=== PATIENT | male | born 1945 | race Caucasian/White ===

== ENCOUNTER → 2017-12-17 | Outpatient (CLI) | payer OTHER, BC | LOC: FIMAGING 10:05 | PROVIDERS: ATTEND Surgery | DX: E21.0 Primary hyperparathyroidism (principal) | CPT/HCPCS: 78070; A9500 ==

== ENCOUNTER 2018-04-02 07:49 | Observation (INO) | payer OTHER, BC ==
[~2018-04-02 07:49] MED LIST: BUPIVACAINE 0.5% 30 ML SDV ONE; EPINEPHrine 1 MG/ML INJ ONE; THROMBIN (BOVINE) 5,000 UNIT VIAL TP ONE; ceFAZolin 2 GM/SWFI 2 GM/20 ML SYR IVP ONE
[2018-04-02] MEDS ORDERED: LR 1,000 ML IV ONE (08:30)
--- NOTE | 2018-04-02 08:34 | PDANEPAE ---
ANE Past Medical History - Cardiovascular History Hx Hypertension: Yes Hx Arrhythmias: No Hx Chest Pain: No Hx Coronary Artery / Peripheral Vascular Disease: Yes Hx CHF / Valvular Disease: No Hx Palpitations: No Cardiovascular History Comment: [facility] 2006 - Pulmonary History Hx COPD: No Hx Asthma/Reactive Airway Disease: No Hx Recent Upper Respiratory Infection: No Hx Oxygen in Use at Home: No Hx Sleep Apnea: No Sleep Apnea Screening Result - Last Documented: Positive - Neurologic History Hx Cerebrovascular Accident: No Hx Seizures: No Hx Dementia: No - Endocrine History Hx Diabetes: No Hypothyroid: No Hyperthyroid: No Obesity: no - Renal History Hx Renal Disorders: Yes Renal History Comment: STAGE 3 KIDNEY DISEASE - Liver History Hx Hepatic Disorders: No - Neurological & Psychiatric Hx Hx Neurological and Psychiatric Disorders: No - Cancer History Hx Cancer: Yes 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 ablation 2017 ANE Review of Systems Review of Systems: - Exercise capacity METS (RN): 4 METS ANE Patient History - Allergies Allergies/Adverse Reactions: No Known Allergies Allergy (Unverified 03/26/18 11:42) - Home Medications Home Medications: Apixaban [Eliquis] 5 mg PO BID 03/26/18 [Last Taken 03/28/18] Cyanocobalamin [Vitamin B12 (*)] 1,000 mcg PO DAILY 03/26/18 [Last Taken ] Ezetimibe/Simvastatin [Vytorin 10-20 mg Tablet] 1 each PO DAILY 03/26/18 [Last Taken 03/28/18] FENOFIBRATE 160 mg PO DAILY 03/26/18 [Last Taken Unknown] Ferrous Sulfate [Ferrous Sulf 325 MG (*)] 2 tab PO DAILY 03/26/18 [Last Taken ] Herbals/Supplements -Info Only 1 ea PO DAILY 03/26/18 [Last Taken 03/28/18] Metoprolol Tartrate [Lopressor 25 mg (*)] 12.5 mg PO DAILY 03/26/18 [Last Taken 03/28/18] Omeprazole 40 mg PO DAILY 03/26/18 [Last Taken 03/28/18] amLODIPine BES/OLMESARTAN MED [Bisi 5-20 mg Tablet] 1 each PO DAILY 03/26/18 [ Last Taken 03/28/18] - Anes Hx Anes Hx: no prior problems - Smoking Hx Smoking Status: Never smoked - Family Anes Hx Family Hx Anesthesia Complications: none ANE Labs/Vital Signs - Labs Result Diagrams: 04/02/18 09:00 - Vital Signs Height: 170.18 cm Weight: 72.575 kg ANE Physical Exam - Airway Neck exam: FROM Mallampati Score: Class 2 Mouth exam: normal dental/mouth exam - Pulmonary Pulmonary: no respiratory distress, no rales or rhonchi, clear to auscultation - Cardiovascular Cardiovascular: systolic murmur, other (irreg rhythym, reg rate) - ASA Status ASA Status: III ANE Anesthesia Plan Anesthesia Plan: general endotracheal anesthesia Total IV Anesthesia: No
--- NOTE | 2018-04-02 09:09 | PDHPUP ---
History & Physical Update H&P update statement: This history and physical update is based on an assessment of the patient which was completed after admission or registration (within 24 hours), but prior to the surgery/procedure. H&P update: H&P reviewed & patient examined, no change in patient's condition since H&P completed
[2018-04-02] MEDS ORDERED: fentaNYL 100 MCG/2 ML INJ ONE ×3 (09:42→12:03)
[2018-04-02] MEDS ORDERED: PROPOFOL 200 MG/20 ML VIAL ONE (09:42)
[2018-04-02] MEDS ORDERED: ONDANSETRON 4 MG/2 ML VIAL ONE (09:43)
[2018-04-02] MEDS ORDERED: RANITIDINE 50 MG/2 ML VIAL ONE (09:43)
[2018-04-02] MEDS ORDERED: ROCURONIUM 50 MG/5 ML VIAL ONE (09:43)
[2018-04-02] MEDS ORDERED: DEXAMETHASONE 4 MG/ML VIAL ONE (09:43)
[2018-04-02] MEDS ORDERED: LIDOCAINE 2% 5 ML SDV ONE (09:45)
[2018-04-02] MEDS: BACITRACIN ZINC 14.2 GM OINTTUBE TP ONE ×2 (10:12→11:27)
[2018-04-02] MEDS ORDERED: fentaNYL 100 MCG/2 ML INJ IVP PRN (10:16)
[2018-04-02] MEDS ORDERED: ONDANSETRON 4 MG/2 ML VIAL IVP PRN (10:16)
[2018-04-02] MEDS ORDERED: LR 500 ML IV PRN (10:16)
[2018-04-02] MEDS ORDERED: ACETAMINOPHEN 500 MG TAB PO PRN (10:16)
[2018-04-02] MEDS ORDERED: HYDROCODONE/APAP 5/325 TAB PO PRN (10:16)
[2018-04-02] MEDS ORDERED: epHEDrine SULFATE 10 MG/ML SYR IVP PRN (10:16)
[2018-04-02] MEDS ORDERED: oxyCODONE IR 5 MG TAB PO PRN (10:16)
[2018-04-02] MEDS ORDERED: NALOXONE HCL 0.4 MG/ML INJ IVP PRN (10:16)
[2018-04-02] MEDS ORDERED: PHENYLEPHRINE HCL 100 MCG/ML SYR IVP PRN (10:16)
[2018-04-02] MEDS ORDERED: PROMETHAZINE HCL 25 MG/ML INJ IVP PRN (10:16)
[2018-04-02] MEDS ORDERED: hydrALAZINE 20 MG/ML VIAL ONE (10:33)
[2018-04-02] MEDS ORDERED: GLYCOPYRROLATE 0.2 MG/1 ML VIAL ONE (11:26)
[2018-04-02] MEDS ORDERED: NEOSTIGMINE METHYLSULFATE 3 MG/3 ML SYR ONE (11:27)
--- NOTE | 2018-04-02 11:41 | POSTOPPROG ---
Post Op Note Date of Operation: 04/02/18 Surgeon: Anand Rausch Wig Maker: Nataly Anesthesiologist: Carlton Anesthesia: GET(General Endotracheal) Pre-op Diagnosis: Hypercalcemia Post-op Diagnosis: Same Indication: Same Procedure: R upper and lower pole parathroidectomies, L upper and lower parathyroid bx Findings: Difficult to find parathyroids, no obvious adenoma Inf/Abcess present in the surg proc area at time of surgery?: No Depth: Deep Incisional (Fascial) EBL: Minimal Specimen(s): Right upper pole thyroid bx Right upper pole parathyroid Right lower pole parathyroid Left upper pole parathyroid bx Left lower pole parathyroid bx (All for frozen)
--- NOTE | 2018-04-02 12:03 | POSTANESTH ---
Post Anesthetic Evaluation Cardiovascular Status: Normal, Stable Respiratory Status: Normal, Stable Level of Consciousness/Mental Status: Can Participate in Eval Pain Control: Adequate, Prn Tx Ordered Nausea/Vomiting Control: Adequate, Prn Tx Ordered Complications Possibly Related to Anesthesia: None Noted
[2018-04-02] MEDS ORDERED: ACETAMINOPHEN 325 MG TAB PO PRN (13:00)
[2018-04-02] MEDS ORDERED: HYDROmorphONE/DILAUDID 1 MG/ML INJ IVP PRN (13:00)
[2018-04-02] MEDS ORDERED: NS 1,000 ML IV SCH (13:15)
[2018-04-02] MEDS ORDERED: NON-FORMULARY NEW DRUG (Ezetimibe/Simvastatin [Vytorin 10-20 Mg Tablet] 1 EACH) PO SCH (13:30)
[2018-04-02] MEDS ORDERED: NON-FORMULARY NEW DRUG (Omeprazole [Omeprazole] 40 MG) PO SCH (13:30)
[2018-04-02] MEDS ORDERED: OLMESARTAN MED PO SCH (13:30)
[2018-04-02] MEDS ORDERED: AMLODIPINE BES PO SCH (13:30)
[2018-04-02] MEDS ORDERED: NON-FORMULARY NEW DRUG (Fenofibrate [Fenofibrate] 160 MG) PO SCH (13:30)
[2018-04-02] MEDS ORDERED: ceFAZolin 2 GM/SWFI 2 GM/20 ML SYR IVP ONE (14:45)
[2018-04-02] MEDS: OLMESARTAN MEDOXOMIL 20 MG TAB PO SCH (15:56)
[2018-04-02] MEDS: amLODIPine BESYLATE 5 MG TAB PO SCH (15:56)
[2018-04-02] MEDS: PANTOPRAZOLE SODIUM 40 MG TAB PO SCH (15:56)
[2018-04-02] MEDS: CALCIUM CARBONATE 500 MG CHEWABLE TAB PO SCH ×2 (15:56→22:34)
[2018-04-02] MEDS: METOPROLOL TARTRATE 25 MG TAB PO SCH (15:57)
[2018-04-02] MEDS: FERROUS SULFATE 325 MG TAB PO SCH (15:58)
--- NOTE | 2018-04-02 18:38 | SOAPPROG ---
SOAP Progress Note Assessment/Plan: Assessment: Postop doing well/swallowing well/voice okay/ chovsteks negative Wound okay/calcium pending Plan: Home in the a.m. 04/02/18 18:36 Objective: Vital Signs Temp Pulse Resp BP Pulse Ox 36.6 C 75 18 137/72 H 94 04/02/18 16:24 04/02/18 16:24 04/02/18 16:24 04/02/18 16:24 04/02/18 16:24 Laboratory Results 04/02/18 15:30 04/01/18 04/02/18 04/03/18 05:59 05:59 05:59 Intake Total 1549 Output Total 750 Balance 799 ICD10 Worksheet Patient Problems: Problems Problem Status Onset Hypercalcemia Acute Hypercalcemia Acute - ICD10 Problem Qualifiers (1) Hypercalcemia
[2018-04-02] MEDS: OXYCODONE/APAP 5/325 TAB PO PRN (23:02)
[2018-04-03] MEDS: FERROUS SULFATE 325 MG TAB PO SCH (08:18)
[2018-04-03] MEDS: OLMESARTAN MEDOXOMIL 20 MG TAB PO SCH (08:21)
[2018-04-03] MEDS: amLODIPine BESYLATE 5 MG TAB PO SCH (08:22)
[2018-04-03] MEDS: METOPROLOL TARTRATE 25 MG TAB PO SCH (08:22)
[2018-04-03] MEDS: PANTOPRAZOLE SODIUM 40 MG TAB PO SCH (08:23)
[2018-04-03] MEDS: CALCIUM CARBONATE 500 MG CHEWABLE TAB PO SCH (08:24)
[2018-04-03] MEDS: OXYCODONE/APAP 5/325 TAB PO PRN (08:29)
[2018-04-03] MEDS ORDERED: ENOXAPARIN 40 MG/0.4 ML SYR SC SCH (09:00)
[2018-04-03] MEDS ORDERED: SIMVASTATIN PO SCH (09:00)
[2018-04-03] MEDS ORDERED: EZETIMIBE PO SCH (09:00)
[2018-04-03] MEDS ORDERED: Fenofibrate [Fenofibrate] 160 MG PO SCH (09:00)
--- NOTE | 2018-04-03 09:18 | SOAPPROG ---
ANI Progress Note Assessment/Plan: Assessment: 72 y/o M s/p partial parathyroidectomy for hypercalcemia S: Doing well overall. C/o some pain in left side of neck. Controlled with Percocet. Eager to go home. O: Alert Afebrile Serum calcium 10.2 HENT: incision is cdi. Moderate tenderness to palpation in the left upper pole of thyroid. Negative Chvostek's sign Cardiac: RRR Lungs: CTA bilaterally Plan: Pain likely from the extensive exploration of neck during surgery. Dispo home today. No need for oral calcium, as calcium is WNL. Follow up in one week in our office with a new calcium level. 04/03/18 09:13 Objective: Vital Signs Temp Pulse Resp BP Pulse Ox 36.9 C 73 16 120/62 90 L 04/03/18 04:00 04/03/18 04:00 04/03/18 04:00 04/03/18 04:00 04/03/18 04:00 Laboratory Results 04/03/18 07:23 04/02/18 04/03/18 04/04/18 05:59 05:59 05:59 Intake Total 1803 Output Total 215 600 Balance -347 -600 ICD10 Worksheet Patient Problems: Problems Problem Status Onset Hypercalcemia Acute Hypercalcemia Acute
[2018-04-03] MEDS ORDERED: PNEUMOC 13-VAL CONJ-DIP CRM/PF 0.5 ML SYR IM ONE (09:30)
[2018-04-03 09:35] VITALS: BP 141/66
--- NOTE | 2018-04-03 10:21 | ASMTLACE ---
LACE Length of stay for Answers: 1 day current admission Acuity / Level of Answers: No Care: Did the patient have an inpatient admission? Comorbidities - select Answers: Coronary Artery Disease all that apply Other Notes: HTN; # of Emergency department Answers: 0 visits in the last 6 months Score: 4 Date Signed: 04/03/2018 10:19 AM Electronically Signed By:Ernestine Ellis
--- NOTE | 2018-04-03 10:23 | ASMTCMCOM ---
CM Note CM Note Notes: Reviewed chart and progress notes. Spoke with RN who states there are no anticipated needs for discharge. Pt will discharge home today with support of . CM available should needs arise. D/C Plan: Independent Date Signed: 04/03/2018 10:22 AM Electronically Signed By:Ernestine Ellis
--- NOTE | 2018-04-05 18:49 | GOP ---
[f rep st] OPERATIVE REPORT DATE OF OPERATION: 04/02/2018 SURGEON: Anand Rausch MD REGIONAL DIRECTOR OF FINANCE: Otilia Ingram NP. ANESTHESIOLOGIST: Shaina Vincent DO. PREOPERATIVE DIAGNOSIS: Hypercalcemia, possible hyperparathyroidism. POSTOPERATIVE DIAGNOSIS: Hypercalcemia, possible hyperparathyroidism. PROCEDURE PERFORMED: Parathyroid exploration with removal of parathyroid adenoma. FINDINGS: The patient was found to have 4 all slightly enlarged parathyroid glands. His PTH was onl y 35 to start and dropped down to 15 with the removal of the largest of the parathyroid glands. The 2 glands on the right side were the largest and they were removed. The 2 glands on the left side of the neck were both biopsy-proven parathyroid tissue. DESCRIPTION OF PROCEDURE: The patient was taken to the operating room where he received a satisfacto ry general endotracheal anesthesia with Dr. Vincent. He was placed in supine position, prepped, and draped in the usual sterile fashion. His neck was extended. A low collar incision was made and carried through the platysma. Cutaneous platysmal flaps were developed to the sternal notch into the thyroid cartilage. The strap muscles were in the midline. On the left side, the thyroid was rotated medially. The middle thyroid vein was divided with a Harmonic Scalpel, and both parathyr oid glands were identified on the left side, neither of which appeared to be excessively enlarged. B iopsies were taken from both glands and sent out for frozen section. Attention was turned to the right side of the neck. The thyroid again was rotated medially by dividi ng the middle thyroid vein. Both parathyroids on the right side were identified one at a time. The upper gland was dissected free and appeared to be enlarged. This was freed up from the thyroid capsu le and its blood supply was divided using hemoclips. The specimen was sent out for frozen section. In the interim, the lower gland was identified, which was more positioned in the upper horn of the th ymus gland. This was dissected free and also appeared to be enlarged. That was sent out to Patholog y after being dissected free. The blood supply controlled with hemoclips. All 4 biopsies were consi stent with parathyroid tissue. The right lower pole gland was approximately 150 mg consistent with a n adenoma, although a small one. After removal of this tissue, the PTH level, which was not dramatic ally elevated, dropped down to 15 and remained at 15. Hemostasis was assured. The wound was sprayed with some topical thrombin and irrigated. The strap muscles were approximated with a running 3-0 Vi cryl suture after hemostasis was achieved. The platysma and subcu were closed with a running 3-0 Marshall ryl suture. Superficial layers were infiltrated with 0.5% Marcaine, and the skin was closed with 4-0 Monocryl subcuticular stitch. He tolerated the procedure well. He was taken to the recovery room i n good condition. There were no complications. /[id number]/MODL
== END 2018-04-03 11:30 | disposition home or self-care (01) ==
LOC: F3E 07:49
PROVIDERS: ADMIT Surgery; ATTEND Surgery
DX: E21.3 Hyperparathyroidism, unspecified (principal); E04.1 Nontoxic single thyroid nodule; N18.3 Chronic kidney disease, stage 3 (moderate); I10 Essential (primary) hypertension; I25.10 Atherosclerotic heart disease of native coronary artery without angina pectoris; Z95.1 Presence of aortocoronary bypass graft; Z85.46 Personal history of malignant neoplasm of prostate; Z85.47 Personal history of malignant neoplasm of testis; Z23 Encounter for immunization
CPT/HCPCS: 60200; 60500; 88305; 88331; 90670; G0009; J0171; J0360; J1100; J1650; J2405; J2704; J2710; J2780; J3010; J2370